=== PATIENT | male | born 1935 | race Caucasian/White ===

== ENCOUNTER 2019-04-08 00:42 | Emergency (ER) | payer MEDICARE, OTHER ==
[~2019-04-08] VITALS: Ht 180.3 cm; Wt 86.4 kg
[2019-04-08 00:43] VITALS: BP 154/90
--- NOTE | 2019-04-08 01:48 | REPVR ---
EXAM: US Duplex Left Lower Extremity Veins, Limited EXAM DATE/TIME: 04/08/2019 1:17 AM CLINICAL HISTORY: 83 years old, male; Pain; Leg, upper and leg, lower; Left; Additional info: Left calf tenderness, swelling TECHNIQUE: Imaging protocol: Real-time Duplex ultrasound of the Left Lower Extremity with 2-D simon scale, color Doppler flow and spectral waveform analysis with image documentation. Limited exam focused on the left lower extremity veins. COMPARISON: No relevant prior studies available. FINDINGS: Left deep veins: Unremarkable. The common femoral, proximal profunda femoral, femoral and popliteal veins are patent without thrombus. Normal compressibility, augmentation response and Doppler waveforms. Left superficial veins: Unremarkable. Saphenofemoral junction is patent without thrombus. Soft tissues: Unremarkable. IMPRESSION: No sonographic evidence of deep vein thrombosis. Electronically signed by: Torres Masters On 04/08/2019 01:47:40 AM
[2019-04-08] MEDS ORDERED: SYNT25TA PO (01:50)
[2019-04-08] MEDS ORDERED: IBUP-1022 PO (03:08)
[2019-04-08] MEDS ORDERED: IBUPROFEN 600 MG TAB PO ONE (03:15)
== END 2019-04-08 03:18 | disposition home or self-care (01) ==
LOC: M ED 00:42
DX: I80.9 Phlebitis and thrombophlebitis of unspecified site (principal); E03.9 Hypothyroidism, unspecified; Z79.890 Hormone replacement therapy; Z88.0 Allergy status to penicillin